=== PATIENT | female | born 1935 | race Caucasian/White ===

== ENCOUNTER 2016-05-08 14:36 | Emergency (ER) | payer MEDICARE, BC ==
[2015-04-10 14:15] VITALS: BMI 20.5
[~2016-05-08 14:36] MED LIST: ASPIRIN81 MG PO; CLEOCIN HCL300 MG PO; NUEDEXTA 20-101 EACH PO; PROAIR HFA8.5 GM INH; RILUTEK50 MG PO; ZANAFLEX2 M1 PO
== END 2016-05-08 16:30 | disposition home or self-care (01) ==
LOC: D.ER 14:36
DX: R33.9 Retention of urine, unspecified (principal); G23.1 Progressive supranuclear ophthalmoplegia [Steele-Richardson-Olszewski]

== ENCOUNTER → 2017-04-05 12:36 | Outpatient (CLI) | payer MEDICARE, BC ==
[2015-04-10 14:15] VITALS: BMI 20.5
[~2017-04-05 12:36] MED LIST changes: +ACETAMINOPHEN500 M1 PO; +MIRALAX17 GM PO; +POTASSIUM20 MEQ/15 PO; +ROBAXIN-750750 MG PO; +ROBINUL 1 MG TAB1 MG PO; +ZOLOFT50 MG PO
== END | disposition home or self-care (01) ==
LOC: D.RAD 12:36
DX: R13.10 Dysphagia, unspecified (principal)

== ENCOUNTER 2017-04-13 08:49 | Inpatient (IN) | payer MEDICARE, BC ==
[~2017-04-13] VITALS: Ht 170.2 cm; Wt 43.6 kg
[~2017-04-13 08:49] MED LIST changes: -ACETAMINOPHEN500 M1 PO; -MIRALAX17 GM PO; -POTASSIUM20 MEQ/15 PO; -ROBAXIN-750750 MG PO; -ROBINUL 1 MG TAB1 MG PO; -ZOLOFT50 MG PO
[2017-04-13 10:06] LABS: APPEARANCE CLOUDY (CLEAR); COLOR YELLOW (YELLOW)
[2017-04-13 10:07] LABS: BILIRUBIN NEGATIVE (NEGATIVE); GLUCOSE NEGATIVE (NEGATIVE); KETONE NEGATIVE (NEGATIVE); NITRITE POSITIVE (NEGATIVE); PROTEIN 1+ mg/dL (NEGATIVE); UROBILINOGEN NORMAL (NORMAL)
[2017-04-13 10:08] LABS: BACTERIA MANY /hpf (NONE SEEN); EPITHELIAL CELLS 0-5 /hpf (0-5); MUCUS <1+ /lpf (NONE SEEN); RED CELLS - URINE 0-5 /hpf (0-5); WHITE CELLS - URINE 25-50 /hpf (0-5)
[2017-04-13 10:41] LABS: BASOPHILS 0 % (0-2); EOSINOPHILS 0 % (0-7); HEMATOCRIT 46.9 % (36.0-48.0); HEMOGLOBIN 14.9 g/dL (12-16); IMMATURE GRANULOCYTES 0.4 % (0-5); LYMPHOCYTES 5.9 % (15-50); MCH 30.6 pg (26.0-34.0); MCHC 31.8 g/dL (31.0-37.0); MCV 96.3 fL (80.0-100.0); MEAN PLATELET VOLUME 11.9 fL (7.4-10.4); MONOCYTES 4.8 % (2-11); NEUTROPHILS 88.9 % (40-80); RBC 4.87 10x6/uL (4.00-5.40); RDW 14.2 % (11.5-14.5); WBC 13.2 10x3/uL (4.8-10.8)
[2017-04-13 10:46] LABS: PLATELET COUNT 254 10x3/uL (130-400)
[2017-04-13 10:55] LABS: ALKALINE PHOSPHATASE 79 U/L (46-116); ALT (SGPT) 18 U/L (10-68); BILIRUBIN - TOTAL 0.37 mg/dL (0.2-1.3); CALC OSMOLALITY 347 mosm/kg (275-300); CARBON DIOXIDE 29.1 mmol/L (21.0-32.0); CREATINE KINASE 242 UL (21-215); CREATININE - SERUM 0.8 mg/dL (0.6-1.3); GLUCOSE 158 mg/dL (74-106); POTASSIUM - SERUM 3.3 mmol/L (3.5-5.1); PRO BNP 249 pg/mL (0-450); PROTEIN - SERUM 7.5 g/dL (6.4-8.2); UREA NITROGEN 65 mg/dL (7-18); eGFR NON AFRICAN AMERICAN 73 mL/min (90-120)
[2017-04-13 10:57] LABS: CHLORIDE - SERUM 126 mmol/L (98-107); SODIUM 165 mmol/L (136-145)
[2017-04-13 10:58] LABS: CKMB 2.2 U/L (0.0-3.6)
--- NOTE | 2017-04-13 12:27 | NUR ---
RECIEVED FROM ER. PT DOES NOT SPEAK AND HER RIGHT SIDE IS CONTRACTED AND SHE DOESNT MOVE. GRACE CATH PATENT TO GRAVITY BAG. IV OF NS AT 100 INFUSING INTO RIGHT HAND. PT IS A DNR. PT IS A TOTAL CARE. DAUGHTER AT BEDSIDE
[2017-04-13 12:42] VITALS: BP 144/78
[2017-04-13 13:23] VITALS: BMI 14.1
--- NOTE | 2017-04-13 13:42 | NUR ---
PT IS APHASIC. IV IN R HAND WITH 20 GA. INFUSING WELL. R SIDED IS CONTRACTED. PULSE IS IRREGULAR. FAMILY IS AT BEDSIDE. FAMILY STATES PT IS A DNR. ORDER SIGNED BY BILL REIS AND ON CHART.
--- NOTE | 2017-04-13 14:51 | NUR ---
LYING QUIETLY WITH EYES CLOSED. FAMILY AT BEDSIDE.WILL MONITOR
[2017-04-13 17:00] VITALS: BP 143/76
--- NOTE | 2017-04-13 19:19 | NUR ---
LYING QUIETLY . FAMILY AT BEDSIDE. NO DISTRESS NOTED
--- NOTE | 2017-04-13 19:51 | NUR ---
PT IN BED RESTING QUIETLY. DOES NOT COMMUNICATE. FAMILY AT BEDSIDE X1. BREATHING EVEN AND UNLABORED. BED IN LOW POSITION. CALL LIGHT WITHIN REACH. WILL CTM.
[2017-04-13 21:29] VITALS: BP 119/63
[2017-04-14 00:48] VITALS: BP 128/82
--- NOTE | 2017-04-14 02:56 | NUR ---
PT PULLED IV OUT. IV RESITED TO LEFT ARM, 22G, 2 ATTEMPTS. D5 RUNNING AT 100NL/HR PER ORDER.
[2017-04-14 05:25] VITALS: BP 134/70
[2017-04-14 08:09] VITALS: BP 143/76
--- NOTE | 2017-04-14 10:28 | NUR ---
PT PULLING AT IV TUBING. REPOSITIONED PT UP IN BED AND MOVED TUBING OUT OF HER SIGHT. PT NONVERBAL AND UNABLE TO COMMUNICATE NEEDS/WANTS. NO CURRENT NEEDS IDENTIFIED AT THIS TIME. WILL CTM.
[2017-04-14 10:30] VITALS: BMI 14.8
--- NOTE | 2017-04-14 11:26 | NUR ---
PT LYING ON HER BED WITH EYES OPEN AND MOUTH OPEN AND DRY WELL. PT IS NONVERBAL AND NOT MOVING OR DOING ANYTHING. ITS VERY SAD PT LOOKS SO HELPLESS PROVIDED ORAL CARE AND PT DIDNT MOVE OR BUDGE AT ALL. PTS IS VERY MALNOURISHED AND NPO AND FAMILY WHO IS POA DOESNT WANT A PEG TUBE. PT WILL MOST LIKELY NEED HOSPICE FOR FAILURE TO THRIVE AND NOT BEING ABLE TO EAT OR DRINK.
[2017-04-14 11:36] LABS: BASOPHILS 0.1 % (0-2); EOSINOPHILS 0.2 % (0-7); HEMOGLOBIN 13.4 g/dL (12-16); IMMATURE GRANULOCYTES 0.7 % (0-5); LYMPHOCYTES 9.4 % (15-50); MCH 30.8 pg (26.0-34.0); MCHC 31.9 g/dL (31.0-37.0); MCV 96.6 fL (80.0-100.0); MEAN PLATELET VOLUME 12.1 fL (7.4-10.4); MONOCYTES 5.4 % (2-11); NEUTROPHILS 84.2 % (40-80); PLATELET COUNT 213 10x3/uL (130-400); RBC 4.35 10x6/uL (4.00-5.40); RDW 14.1 % (11.5-14.5); WBC 11.2 10x3/uL (4.8-10.8)
[2017-04-14 11:57] LABS: CALCIUM 9.1 mg/dL (8.5-10.1); CARBON DIOXIDE 30.3 mmol/L (21.0-32.0); GLUCOSE 144 mg/dL (74-106); POTASSIUM - SERUM 3.4 mmol/L (3.5-5.1)
[2017-04-14 11:58] LABS: CALC OSMOLALITY 329 mosm/kg (275-300); CREATININE - SERUM 0.5 mg/dL (0.6-1.3); UREA NITROGEN 40 mg/dL (7-18); eGFR NON AFRICAN AMERICAN > 90 mL/min (90-120)
[2017-04-14 12:00] LABS: CHLORIDE - SERUM 122 mmol/L (98-107); SODIUM 160 mmol/L (136-145)
[2017-04-14 12:54] VITALS: BP 142/72
--- NOTE | 2017-04-14 14:46 | NUR ---
DAUGHTER AT BEDSIDE PROVIDING ORAL CARE. DAUGHTER IS POA AND COMPLETELY AWARE OF SITUATION AND REQUESTING TO HAVE HOSPICE CONSULTED. PRIMARY AT BEDSIDE AND WILL MAKE ARRANGEMENTS.
[2017-04-14 15:59] VITALS: BP 146/72
--- NOTE | 2017-04-14 16:24 | NUR ---
GRANDDAUGHTER AT BEDSIDE VISITING WITH PT. PT REMAINS SAME CONDITION NOT COMMUNICATING OR ANY ACTIVITY AT THIS TIME. NO CURRENT NEEDS WAITING ON HOSPICE TO ASSESS FOR CONSULT.
--- NOTE | 2017-04-14 16:53 | NUR ---
Patient Name: MARTI HILL Admission Status: ER Accout number: [id number] Admission Date: 04-13-2017 : 1935 Admission Diagnosis: Attending: CLEVELAND CAMEJO Current LOS: 1 Anticipated DC Date: 04-15-2017 Planned Disposition: Hospice Medical Facility Primary Insurance: MEDICARE A & B PLANNED EXTERNAL PROVIDER: TO BE DETERMINED Discharge Planning Comments: CM RECEIVED ORDER FOR HOSPICE CONSULT, ATTEMPTED TO MEET WITH PT AND FAMILY; NO FAMILY PRESENT IN ROOM, PT WOULD LOOK AT CM AND GRUNT WITH NO OTHER RESPONSE. CM ATTEMPTED TO CALL PT'S DAUGHTER, RAMOS ALSTON, , LEFT MESSAGE ASKING FOR RETURN CALL. CM SPOKE TO VERO NEGRON WHO REPORTS FAMILY INTERESTED IN HOSPICE HERE AT [facility], FAMILY IS MAKING FINAL ARRANGEMENTS FOR PT AND MAY WANT TO MEET WITH HOSPICE TOMORROW AFTERNOON. CM WAITING PT'S DAUGHTER TO CONTACT CM TO DISCUSS HOSPICE PROVIDER CHOICE AND WISHES. Gis Software Developer: Maverick Gillespie
--- NOTE | 2017-04-14 19:25 | NUR ---
PT IN BED RESTING. BREATHING EVEN AND UNLABORED. BED IN LOW POSITION.
[2017-04-14 22:15] VITALS: BP 123/64
[2017-04-15 04:00] VITALS: BP 141/72
[2017-04-15] MEDS ORDERED: ZOLOFT50 MG PO (05:41)
[2017-04-15] MEDS ORDERED: POTASSIUM20 MEQ/15 PO (05:43)
[2017-04-15] MEDS ORDERED: ROBAXIN-750750 MG PO (05:44)
[2017-04-15] MEDS ORDERED: ROBINUL 1 MG TAB1 MG PO (05:44)
[2017-04-15] MEDS ORDERED: MIRALAX17 GM PO (05:45)
[2017-04-15] MEDS ORDERED: ACETAMINOPHEN500 M1 PO (05:49)
[2017-04-15 06:03] LABS: BASOPHILS 0.1 % (0-2); EOSINOPHILS 0.6 % (0-7); HEMATOCRIT 40.4 % (36.0-48.0); HEMOGLOBIN 12.9 g/dL (12-16); IMMATURE GRANULOCYTES 0.5 % (0-5); LYMPHOCYTES 7.5 % (15-50); MCH 30.4 pg (26.0-34.0); MCHC 31.9 g/dL (31.0-37.0); MCV 95.3 fL (80.0-100.0); MEAN PLATELET VOLUME 12.2 fL (7.4-10.4); MONOCYTES 5.2 % (2-11); NEUTROPHILS 86.1 % (40-80); PLATELET COUNT 190 10x3/uL (130-400); RBC 4.24 10x6/uL (4.00-5.40); RDW 13.9 % (11.5-14.5)
[2017-04-15 06:39] LABS: CALC OSMOLALITY 303 mosm/kg (275-300); CALCIUM 9.4 mg/dL (8.5-10.1); CARBON DIOXIDE 28.1 mmol/L (21.0-32.0); CHLORIDE - SERUM 113 mmol/L (98-107); CREATININE - SERUM 0.6 mg/dL (0.6-1.3); GLUCOSE 159 mg/dL (74-106); SODIUM 149 mmol/L (136-145); eGFR NON AFRICAN AMERICAN > 90 mL/min (90-120)
[2017-04-15 06:47] LABS: UREA NITROGEN 27 mg/dL (7-18)
--- NOTE | 2017-04-15 07:45 | NUR ---
AM ROUNDS COMPLETED. INTRODUCED MYSELF TO PT PRIMARY RN FOR TODAYS SHIFT HOWEVER PT DOES NOT COMMUNICATE AT ALL. PT DID GRAB MY HAND BUT HAS NO FACIAL AFFECT AND REMAINS FLAT. PT IS BEING EVALUATED FOR HOSPICE TODAY AND FAMILY ALL AWARE AND AGREE AND WANT IT. PT RESTING QUIETLY, NO S/S OF DISTRESS OR ANY CURRENT NEEDS AT THIS TIME. WILL CTM.
--- NOTE | 2017-04-15 08:32 | NUR ---
Patient Name: MARTI HILL Encounter No: [id number] : 1935 Primary Insurance: MEDICARE A & B Anticipated DC Date: 04-15-2017 Planned Disposition: Hospice Medical Facility External Planned Provider: TO BE DETERMINED DCP follow-up note: CM RECEIVED CALL FROM RAMOS ALSTON, PT'S DAUGHTER, WHO REPORTS SHE IS ON THE WAY TO [place] TO COMPLETE ARRANGMENTS. RAMOS WANTS TO DISCUSS HOPSPICE PROVIDERS IN PERSON WITH CM AT THE HOSPITAL TODAY AT ABOUT 3PM. CM WAITING PT'S DAUGHTER TO CONTACT CM AT 3PM TODAY TO DISCUSS HOSPICE PROVIDER CHOICE AND WISHES. Seat Installer: Maverick Gillespie
[2017-04-15 08:46] VITALS: BP 149/76
[2017-04-15 12:07] VITALS: BP 143/68
--- NOTE | 2017-04-15 12:31 | NUR ---
PT PIV INFILTRATED. NOTIFIED PRIMARY AND THEY STATED TO HOLD OFF ON RESTICKING HER UNTIL WE DISCUSS WITH FAMILY AND HOSPICE IF SHE WILL NEED IT SO WE DONT HAVE TO CAUSE HER ANY PROBLEMS.
--- NOTE | 2017-04-15 14:14 | NUR ---
PTS GRANDDAUGHTER HERE TO VISIT. PT REMAINS THE SAME BUT STABLE. NO CURRENT NEEDS. WILL CTM.
--- NOTE | 2017-04-15 14:44 | NUR ---
GRANDDAUGHTER AT BEDSIDE AND CONCERNED WITH PT NOT MOVING AND STAYING WITH HER EYES AND MOUTH OPEN EXPLAINED TO HER DISEASE PROCESS. DID CHECK VITALS TO MAKE HER FEEL BETTER AND THEY WERE STABLE BUT FEBRILE @100.1 BP 147/77 HR 90 PULSE OX 96% ON RA. CHECKED GRACE AND ITS PATENT AND DRAINING WITH VERY LITTLE OUTPUT. NO CURRENT NEEDS. WILL CTM.
--- NOTE | 2017-04-15 17:02 | NUR ---
Patient Name: MARTI HILL Admission Status: ER Accout number: [id number] Admission Date: 04-13-2017 : 1935 Admission Diagnosis:DEHYDRATION Attending: CLEVELAND CAMEJO Current LOS: 2 Anticipated DC Date: 04-15-2017 Planned Disposition: Nursing Facility [facility] Primary Insurance: MEDICARE A & B PLANNED EXTERNAL PROVIDER: [facility] Discharge Planning Comments: * Is the patient Alert and Oriented? Yes 0 * How many steps to enter\exit or inside your home? NONE 0 * PCP [facility] 0 * Pharmacy [facility] 0 * Preadmission Environment [facility] 0 * Facility Name [facility] 0 * ADLs Total Dependent 0 * Equipment Other 0 * Other Equipment ALL EQUIPMENT PROVIDED BY [facility] 0 * List name and contact numbers for known caregivers / representatives who currently or will assist patient after discharge: RAMOS ALSTON, DAUGHTER, 0 * Community resources currently utilized None 0 * Please name any agencies selected above. NONE 0 * Additional services required to return to the preadmission environment? Yes * Can the patient safely return to the preadmission environment? Yes 0 * Has this patient been hospitalized within the prior 30 days at any hospital? No 0 CM MET WITH FAMILY IN WAITING ROOM TO DISCUSS DISCHARGE PLANNING AND NEEDS. PT WAS LIVING AT [facility]. PT DID NOT WANT FEEDING TUBE AND IS UNABLE TO EAT. FAMILY NOW WANTS HOSPICE CARE FOR PT. CM DISCUSSED AVAILABILITY OF HOSPICE CARE, LOCATIONS AND PROVIDERS. DAUGHTER, RAMOS, WOULD LIKE PT EVALUATED FOR HOSPICE AT [facility]; IF PT NOT APPROPRIATE FOR INPATIENT, PT WILL RETURN TO [facility] FOR COMFORT CARE IN THE FACILITY. IMPORTANT MESSAGE FROM MEDICARE PROVIDED AND EXPLAINED. CM CALLED [facility], , PROVIDED REFERRAL INFORMATION; [facility] ARRIVED FOR SCREENING, REFERRAL PROVIDED. CM WAITING HOSPICE EVALUATION FOR INPATIENT HOSPICE BY [facility]; IF PT DOES NOT MEET INPATIENT HOSPICE CRITERIA, FAMILY PLANS FOR PT TO RETURN TO [facility] WITH COMFORT CARE. V[employer] Cellar Charge Hand: Maverick Gillespie
--- NOTE | 2017-04-15 17:04 | NUR ---
HOSPICE AT BEDSIDE ASSESSING PT AND TALKING WITH FAMILY.
[2017-04-15 17:24] VITALS: Ht 170.2 cm; Wt 43.6 kg
[2017-04-15 19:00] VITALS: BP 133/75
--- NOTE | 2017-04-15 19:53 | NUR ---
PT IN BED RESTING QUIETLY. BREATHING EVEN AND UNLABORED. FAMILY PRESENT AT BEDSIDE. MOUTH CARE GIVEN. BED IN LOW POSITION. WILL CTM.
--- NOTE | 2017-04-16 03:14 | NUR ---
PT IN BED RESTING QUIETLY. BREATHING EVEN AND UNLABORED. BED BATH GIVEN. MOUTH CARE GIVEN. WILL CTM.
[2017-04-16 04:00] VITALS: BP 138/69
[2017-04-16 05:28] LABS: BASOPHILS 0.1 % (0-2); EOSINOPHILS 0.7 % (0-7); HEMATOCRIT 42.2 % (36.0-48.0); HEMOGLOBIN 13.8 g/dL (12-16); IMMATURE GRANULOCYTES 0.5 % (0-5); MCH 30.5 pg (26.0-34.0); MCHC 32.7 g/dL (31.0-37.0); MCV 93.4 fL (80.0-100.0); MEAN PLATELET VOLUME 12.5 fL (7.4-10.4); MONOCYTES 5.7 % (2-11); PLATELET COUNT 214 10x3/uL (130-400); RBC 4.52 10x6/uL (4.00-5.40); RDW 13.7 % (11.5-14.5); WBC 10.6 10x3/uL (4.8-10.8)
[2017-04-16 06:17] LABS: CALC OSMOLALITY 298 mosm/kg (275-300); CALCIUM 9.6 mg/dL (8.5-10.1); CARBON DIOXIDE 25.6 mmol/L (21.0-32.0); CHLORIDE - SERUM 109 mmol/L (98-107); CREATININE - SERUM 0.5 mg/dL (0.6-1.3); GLUCOSE 115 mg/dL (74-106); POTASSIUM - SERUM 3.2 mmol/L (3.5-5.1); SODIUM 147 mmol/L (136-145); UREA NITROGEN 28 mg/dL (7-18); eGFR NON AFRICAN AMERICAN > 90 mL/min (90-120)
--- NOTE | 2017-04-16 07:45 | NUR ---
AM ROUNDS COMPLETED. SHIFT ASSESSMENT COMPLETED. PT STILL NONRESPONSIVE AND AWAITING HOSPICE TO ASSESS.
[2017-04-16 08:55] VITALS: BP 135/75
--- NOTE | 2017-04-16 09:30 | NUR ---
Patient Name: MARTI HILL Encounter No: [id number] : 1935 Primary Insurance: MEDICARE A & B Anticipated DC Date: 04-15-2017 Planned Disposition: Nursing Facility [facility] External Planned Provider: [facility] ATTEND[employer] MEDICAID BED DCP follow-up note: CM SPOKE TO [facility] NURSE [facility] AFTER 1700 HOURS, 04-15-17, WHO ADVISED THAT PT IS NOT MEETING INPATIENT CRITERIA FOR HOSPICE. CM SPOKE TO PT'S DAUGHTER, RAMOS ALSTON, DISCUSSED OPTIONS OF OTHER [facility] THAT MAY ASSESS PT FOR INPATIENT HOSPICE. RAMOS ASKED THAT [facility] BE CONSULTED. ON , CM CALLED [facility], , SPOKE TO ERIC WHO REPORTS THEY CAN HAVE PT EVALUATED AND HAVE DETERMINATION WITHIN AN HOUR. CM FAXED REFERRAL TO [facility] AT [phone]. CM WAITING ADMISSION DETERMINATION FROM [facility]. IF PT IS DECLINED BY [facility], PT WILL RETURN TO [facility] FOR COMFORT CARE PROVIDED BY THE FACILITY. Maverick Gillespie, CASE MANAGEMENT
--- NOTE | 2017-04-16 11:17 | NUR ---
SON AT BEDSIDE WITH HOSPICE NURSE DISCUSSING ADMISSION FOR HOSPICE. WILL CPOC.
[2017-04-16 11:46] VITALS: BP 143/74
--- NOTE | 2017-04-16 14:39 | NUR ---
LORI FROM [facility] CALLED FOR REPORT. REPORT GIVEN WILL WORK WITH CASE MANAGEMENT ON TRANSPORTATION AND GET PT TRANSFERRED OUT. NO CURRENT NEEDS.
--- NOTE | 2017-04-16 15:22 | NUR ---
CALLED [facility] FOR TRANSPORTATION. PT NOW WAITING ON AMBULANCE.
--- NOTE | 2017-04-16 16:20 | NUR ---
AMBULANCE HERE FOR TRANSPORTATION. FAMILY AT BEDSIDE. NOTIFIED HOPICE THAT PT WILL BE LEAVING. NO FURTHER NEEDS.
[2017-04-18 18:06] LABS: AEROBE ID Final report (()); RESULT 1 Escherichia coli (())
== END 2017-04-16 16:25 | disposition home health service (06) | DRG 689 ==
LOC: D.ER 08:49 → D.M2 10:47
PROVIDERS: Emergency Medicine; ADMIT Family Medicine
DX: N39.0 Urinary tract infection, site not specified (principal); J18.9 Pneumonia, unspecified organism; E87.0 Hyperosmolality and hypernatremia; G23.1 Progressive supranuclear ophthalmoplegia [Steele-Richardson-Olszewski]; E86.0 Dehydration; R13.10 Dysphagia, unspecified; Z66 Do not resuscitate